=== PATIENT | male | born 1985 | race Caucasian/White ===

== ENCOUNTER 2016-12-03 22:24 | Emergency (ER) | payer SELFPAY ==
--- NOTE | ~2016-12-03 | CR282 ---
[facility]. [facility] A Service of [facility] RADIOLOGY TEXT RESULTS PATIENT: TIFFANY RODRIGUEZ JR LOCATION: SED : 83 UNIT #: [id number] AGE: [address]: DAMIEN CASE SEX: M ORDER DR: [id number] [place] [id number] E MR#: [id number] Acc #: [id number] NAME: TIFFANY RODRIGUEZ JR : 1985 SEX: M STUDY DATE/TIME: 12/03/2016 22:05 UNIT: SED ROOM: STUDY DESCRIPTION: CR Wrist Min 3 View Rt Attending Physician: Damien Case Ordering Physician: Damien Case Primary Care Physician: Primary Care Physician No MEDICAL IMAGING REPORT This report is preliminary unless electronic signature is present. EXAM Right wrist, 3 views HISTORY Wrist pain after fall today. FINDINGS Wrist evaluation in multiple projections shows normal mineralization of the bony structures about the wrist and satisfactory articular relationship of the radius and ulna to the proximal carpal row and of the distal carpal segments to the metacarpal bases. There is no indication of fracture or dislocation, and no soft tissue radiopaque foreign body is present. No congenital defects are apparent. IMPRESSION Normal wrist. Dictated by... Nithin Maki M.D. THIS IS AN ELECTRONICALLY VERIFIED REPORT Nithin Maki M.D. at 12/04/2016 1:58 PM PRISCILA/joseline TD: 12/04/2016 04:33 JOB #: [id number] MEDICAL IMAGING REPORT Page 1 of 1
--- NOTE | ~2016-12-03 | CR142 ---
[facility] A Service of [facility] RADIOLOGY TEXT RESULTS PATIENT: TIFFANY RODRIGUEZ JR LOCATION: SED : 83 UNIT #: [id number] AGE: [address]: DAMIEN CASE SEX: M ORDER DR: [id number] [place] [id number] E MR#: [id number] Acc #: [id number] NAME: TIFFANY RODRIGUEZ JR : 1985 SEX: M STUDY DATE/TIME: 12/03/2016 22:05 UNIT: SED ROOM: STUDY DESCRIPTION: CR Hand Min 3 Views Rt Attending Physician: Damien Case Ordering Physician: Damien Case Primary Care Physician: Primary Care Physician No MEDICAL IMAGING REPORT This report is preliminary unless electronic signature is present. EXAM Right hand 3 views. HISTORY Hand pain today after fall. FINDINGS AP, lateral, and oblique projections of the hand show good mineralization with normal carpal, metacarpal, and phalangeal anatomy without indication of fracture, dislocation, or soft tissue radiopaque foreign body. IMPRESSION Normal hand. Dictated by... Nithin Maki M.D. THIS IS AN ELECTRONICALLY VERIFIED REPORT Nithin Maki M.D. at 12/04/2016 1:58 PM PRISCILA/joseline TD: 12/04/2016 04:34 JOB #: [id number] MEDICAL IMAGING REPORT Page 1 of 1
[~2016-12-03 22:24] MED LIST: ANTI-ITCH28 GM TOP; NO MEDICATIONS; ULTRAM PO
== END 2016-12-03 23:13 | disposition home or self-care (01) ==
LOC: SED 22:24
DX: S63.501A Unspecified sprain of right wrist, initial encounter (principal); S60.221A Contusion of right hand, initial encounter; W01.0XXA Fall on same level from slipping, tripping and stumbling without subsequent striking against object, initial encounter; Y92.830 Public park as the place of occurrence of the external cause
CPT/HCPCS: 29280; 73110; 73130; 99283